=== PATIENT | female | born 2000 | race Caucasian/White ===

== ENCOUNTER 2020-12-03 14:13 | Emergency (ER) | payer OTHER, SELFPAY ==
[2020-12-03 14:38] VITALS: BP 163/105; PULSE 119; RESP 22; TEMP 36.6; O2SAT 97
--- NOTE | 2020-12-03 18:26 | ED_ITS ---
HPI - Anxiety General Chief Complaint: Anxiety Stated Complaint: anxiety/poss si/ticks/depression today Time Seen by Provider: 12/03/20 18:03 Source: patient Mode of arrival: Ambulatory Limitations: no limitations History of Present Illness HPI narrative: Patient is a 20-year-old female who was sent to the emergency department from her counselor's office for evaluation of acute anxiety, tics, thoughts of hurting herself earlier today. She does report that she has had quite a bit of anxiety over the past couple days. She states it was due to ?stressful events ?she is not currently suicidal. She does see a counselor. Her primary doctor manages her medicines. She is currently on Prozac and Seroquel. She has also had ticks for some time now. It started after she was on Prozac in before she started Seroquel although she does think they are getting somewhat worse. She was started on Seroquel after her dose of Prozac was decreased by her primary doctor. She states that this was because she was still having depression issues and also because of the techs. She did take 1 of her personal Ativan tablets in triage and by the time I interviewed her if she was feeling much better. Related Data Home Medications Medication Instructions Recorded Confirmed MULTIVITAMIN (Multivitamin 1 cap PO EVERY DAY #0 07/15/08 -) Allergies Allergy/AdvReac Type Severity Reaction Status Date / Time amoxicillin [AMOXICILLIN] Allergy Intermediate Unverified 01/26/18 11:51 clavulanic acid Allergy Intermediate Unverified 01/26/18 11:51 [CLAVULANIC ACID] Review of Systems Constitutional Constitutional: Denies fever(s) and Denies headache(s) ENT Ears, Nose, Mouth, and Throat: Denies headache(s) Cardiovascular Cardiovascular: Denies chest pain and Denies dyspnea Respiratory Respiratory: Denies dyspnea Gastrointestinal Gastrointestinal: Denies abdominal pain and Denies nausea Neurologic Neurologic: Denies confusion and Denies headache(s) Psychiatric Psychiatric: Reports anxiety, Denies confusion and Reports depression Hematologic/Lymphatic On Anticoagulants: No Allergic/Immunologic Allergic/Immunologic: Denies urticaria Patient History Medical History Acute anxiety Depression Micturition syncope Substance Use Type: marijuana Exam Initial Vital Signs Initial Vital Signs: Vital Signs Temperature 97.8 F 12/03/20 14:38 Pulse Rate 119 H 02/16/21 14:38 Respiratory Rate 22 12/03/20 14:38 Blood Pressure 163/105 H 12/03/20 14:38 Pulse Oximetry 97 12/03/20 14:38 Const General: cooperative, comfortable and well developed Limitations: mental status not altered HENMT Head: normal to inspection and normocephalic Resp Effort & Inspection: normal respiratory effort Cardio Rate: regular rate Skin Lesions: no lesions Neuro General: patient alert and patient awake Cognition: normal cognition Speech: speech normal Extrem General: normal to inspection Psych Appearance: well kempt Speech and Movement: speech and movement normal Mood: congruent mood Affect: normal affect Thought Content: no homicidality and suicidality Course Orders Ordered: ED Orders 12/03/20 15:59 Consult to UNARMED SECURITY OFFICER - [employer] Stat Vital Signs Vital signs: Vital Signs - 8 hr 12/03/20 14:38 12/03/20 18:34 Temperature 97.8 F Pulse Rate 119 H 78 Respiratory Rate 22 14 Blood Pressure 163/105 H 140/78 Pulse Oximetry 97 MDM - Anxiety MDM Narrative Medical decision making narrative: Patient did not currently suicidal nor homicidal. She states that her anxiety is better after her medications. She does have a ?tic ?mostly closing her eyes in moving her head. Considered other issues such as tardive dyskinesia however her presentation today is not consistent with that. I do suspect that it is anxiety related. We did discuss inpatient treatment for her symptoms however she would like to hold on that for now. She is going home with her mother. She was given return precautions. He is going to follow up with both her counselor and her primary doctor regarding her presentation today. She expressed understanding and agreement. Discharge Plan Departure Patient Disposition: Home Clinical Impression: Acute anxiety Instructions: Anxiety Disorders Activity Restrictions/Additional Instructions: Recommend you continue all of your medications as directed. I do recommend that you contact your primary doctor and also your therapist for a follow-up in the next couple days. Return to the emergency department for any new or worsening symptoms Prescriptions: No Action MULTIVITAMIN (Multivitamin -) 1 cap PO EVERY DAY Qty: 0 RF: 0 Referrals: Adolfo Canseco MD [Primary Care Provider] -
[2020-12-03 18:34] VITALS: BP 140/78; PULSE 78; RESP 14
== END 2020-12-03 18:36 | disposition home or self-care (01) ==
PROVIDERS: Emergency Provider Emergency Medicine; Family Provider Family Medicine; PCP Family Medicine
DX: F41.9 Anxiety disorder, unspecified (principal); F32.9 Major depressive disorder, single episode, unspecified
CPT/HCPCS: 99281

== ENCOUNTER → 2021-09-10 12:21 | Outpatient (CLI) | payer OTHER, SELFPAY ==
--- NOTE | 2021-09-10 | DI.US.S_ITS ---
PROCEDURE: US EXTREMITY NONVASC LOWER LT INDICATIONS: LEFT LEG SOFT TISSUE MASS TECHNIQUE: Real-time scanning was performed of the left knee soft tissues, with image documentation. COMPARISON: None. FINDINGS: A complex hypoechoic lesion is seen in the area of clinical concern, measuring 7.8 x 11.4 x 9.7 cm, which does not appear to demonstrate internal vascularity IMPRESSION: 1. Complex hypoechoic lesion in the area of clinical concern. Differential considerations include bursal fluid or hematoma. Consider magnetic resonance imaging for further evaluation if the lesion persists. Dictated by: Duane Hudson M.D. on 09/10/2021 at 14:04 Approved by: Duane Hudson M.D. on 09/10/2021 at 14:07
== END ==
PROVIDERS: Family Provider Family Medicine; PCP Family Medicine; Referring Provider Family Medicine; Visit Provider Family Medicine
DX: R22.42 Localized swelling, mass and lump, left lower limb (principal)
CPT/HCPCS: 76882

== ENCOUNTER → 2021-11-05 14:36 | Outpatient (CLI) | payer OTHER, SELFPAY ==
--- NOTE | 2021-11-05 | DI.CT.S_ITS ---
PROCEDURE: CT LE LT WO CON INDICATIONS: Left Leg Mass TECHNIQUE: Noncontrast 1-1.5 mm axial sections acquired from the mid-patella to the proximal tibia, with coronal and sagittal reformats. COMPARISON: [facility], , EXTREMITY NONVASC LOWER LT, 09/10/2021, 12:39. FINDINGS: Image quality: Excellent. Bones: No acute, displaced fracture or dislocation. Soft tissues: An 11.3 x 6.1 x 9.3 cm soft tissue mass is seen in the popliteal fossa. No substantial joint effusion. IMPRESSION: Soft tissue mass in the popliteal fossa as detailed above. Differential considerations include a neoplastic process or hemorrhagic Johnson's cyst. Magnetic resonance imaging with intravenous contrast may be helpful for further evaluation. Dictated by: Duane Hudson M.D. on 11/05/2021 at 15:05 Approved by: Duane Hudson M.D. on 11/05/2021 at 15:21
== END ==
PROVIDERS: Family Provider Family Medicine; PCP Family Medicine; Referring Provider Family Medicine; Visit Provider Family Medicine
DX: R22.40 Localized swelling, mass and lump, unspecified lower limb (principal)
CPT/HCPCS: 73700

== ENCOUNTER 2022-11-27 09:57 | Emergency (ER) | payer OTHER, SELFPAY ==
[2022-11-27] VITALS (10 sets, daily range): BP systolic 117–160; BP diastolic 62–116; PULSE 104–117; RESP 16–26; TEMP 36.7; O2SAT 98–100; BMI 38.0
--- NOTE | 2022-11-27 10:22 | DI.RAD.S_ITS ---
PROCEDURE: XR KNEE LT 1TO2V INDICATIONS: h/o sarcoma left knee, new pain, increased wound drainage. TECHNIQUE: 2 views of the knee were acquired. COMPARISON: None. FINDINGS: Bones: No displaced fracture. No periosteal reaction. No obvious cortical erosion. Soft tissues: Postsurgical changes with cyst clips and skin clari. [id number] joint effusion. IMPRESSION: Soft tissue postsurgical changes. [id number] joint effusion. No acute radiographic abnormality on this limited two view of the knee. If there is high concern for further derangement, consider MRI evaluation. Dictated by: Ronald Santiago M.D. on 11/27/2022 at 11:00 Approved by: Ronald Santiago M.D. on 11/27/2022 at 11:01
--- NOTE | 2022-11-27 10:22 | DI.RAD.S_ITS ---
PROCEDURE: XR CHEST 1V INDICATIONS: suspected sepsis TECHNIQUE: One view of the chest was acquired. COMPARISON: None. FINDINGS: Surgical changes and devices: Right central line terminates in the SVC. Lungs and pleura: Low lung volumes. No dense consolidation or pleural effusion. Mediastinum: Mediastinal contours appear normal. Heart size is normal. Bones and chest wall: No suspicious bony lesions. Overlying soft tissues appear unremarkable. IMPRESSION: No acute radiographic abnormality. Pulmonary nodules are better seen on prior CT. Dictated by: Ronald Santiago M.D. on 11/27/2022 at 10:59 Approved by: Ronald Santiago M.D. on 11/27/2022 at 10:59
[2022-11-27 11:38] LABS: Add Manual Diff / Slide Review NO; Basophils Absolute Auto 0 /uL (0-100); Basophils Percent Auto 0.3 % (0-2); Eosinophils Absolute Auto 0 /uL (0-450); Eosinophils Percent Auto 0.3 % (2-4); Hematocrit 32.8 % (36-46); Hemoglobin 10.9 g/dL (12.0-16.0); Lymphocytes Absolute Auto 1200 /uL (1100-4500); Mean Corpuscular HGB Conc 33.3 % (30-36); Mean Corpuscular Hemoglobin 32.5 PG (26-34); Mean Corpuscular Volume 97.5 fL (80-100); Monocytes Absolute Auto 1200 /uL (0-900); Monocytes Percent Auto 12.8 % (3-14); Neutrophils Absolute Auto 7200 /uL (1500-7000); Neutrophils Percent Auto 74.6 % (50-75); Platelet Count 299 X10^3/uL (150-400); Red Blood Cell Count 3.37 X10^6/uL (4.0-5.2); Red Cell Distribution Width 16.7 % (11.6-14.8); White Blood Cell Count 9.6 X10^3/uL (4.5-11.0)
[2022-11-27] MEDS: SODIUM CHLORIDE 0.9% 1,000 ML 1000 ML IV ×2 (11:41→14:25)
[2022-11-27 11:50] LABS: INR 1.1 (0.9-1.3); Prothrombin Time 12.1 SECONDS (10.1-12.7)
[2022-11-27 11:53] LABS: PTT Partial Thromboplastin Tim 30 SECONDS (26-36)
[2022-11-27 11:56] LABS: Alanine Aminotransferase 32 IU/L (<35); Albumin 4.2 g/dL (3.5-5.0); Albumin Globulin Ratio 1.3 (1.0-2.8); Alkaline Phosphatase 124 U/L (38-126); Aspartate Aminotransferase 27 IU/L (14-36); BUN Creatinine Ratio 8.8 (6-22); Bilirubin Total 0.3 mg/dL (0.2-1.3); Blood Urea Nitrogen 5 mg/dL (7-17); Calcium 9.1 mg/dL (8.4-10.2); Carbon Dioxide 27 mmol/L (22-32); Chloride 97 mmol/L (98-107); Estimated Glomerular Filt Rate > 60 mL/min (>60); Globulin 3.2 g/dL (1.7-4.1); Glucose 114 mg/dL (70-100); HEMOLYSIS < 15 (0-50); Lipase 24 U/L (23-300); Potassium 3.7 mmol/L (3.4-5.1); Sodium 135 mmol/L (137-145); Total Protein 7.4 g/dL (6.3-8.2)
[2022-11-27 11:57] LABS: Lactate (Lactic Acid) 1.4 mmol/L (0.7-2.1)
--- NOTE | 2022-11-27 13:11 | ED_ITS ---
HPI - Extremity Problem General Chief complaint: Extremity Problem,Nontraumatic Stated complaint: post op LT knee surgey new pain unable to stand Time Seen by Provider: 11/27/22 10:42 Source: patient Mode of arrival: Wheelchair History of Present Illness HPI Narrative: This is a 22-year-old female with known osteosarcoma for left lower extremity who had chemotherapy and then surgery on November 06 for they osteosarcoma developed infection and went back to the OR for additional clean out a week later. Patient states she is been improving but overnight had increased pain over the kneecap and behind the knee or the calf farther below and radiating down towards her ankle. She has not appreciated increasing swelling, warmth redness or other color changes such as pallor or cyanosis. Patient denies fevers or chills. No chest pain, no shortness of breath, no nausea or vomiting, no diarrhea constipation she states stooling normally. No dysuria urgency or frequency. She states she has a wound VAC in place it has been draining small amounts has not changed in color or had any other changes. She states it is not as painful at the site of the wound VAC and this is sort of a different location than where most of her pain was. She states she is had some pain in this area but not as intense in the past. She is normally on lithium, she is been taking oxycodone, tramadol and Vicodin intermittently for pain management. She is on cephalexin for an antibiotic as well and antinausea medicine she does have a Nexplanon in place. She states she is had prior surgery for her tonsils. Allergic to Augmentin. No tobacco, alcohol occasional THC no illicit. Patient's surgeon is Dr. Rodas through [facility] in [place]. Dr. Canseco is her primary care. Related Data Home Medications Medication Instructions Recorded Confirmed MULTIVITAMIN (Multivitamin 1 cap PO EVERY DAY ##0 07/15/08 -) lithium carbonate 300 mg 600 mg PO QAM 11/27/22 11/27/22 tablet,extended release Previous Rx's Medication Instructions Recorded oxycodone 5 mg tablet 5 mg PO Q6H PRN pain #14 tabs 11/27/22 Allergies Allergy/AdvReac Type Severity Reaction Status Date / Time amoxicillin [AMOXICILLIN] Allergy Intermediate Verified 11/27/22 10:15 clavulanic acid Allergy Intermediate Verified 11/27/22 10:15 [CLAVULANIC ACID] Review of Systems Review of Systems ROS Unobtainable: All systems reviewed & are unremarkable except as noted in HPI and below Patient History Medical History Acute anxiety Depression Micturition syncope Social History Smoking Status: Never smoker Smoking Status: Never smoker alcohol intake frequency: 0-2 drinks per day Substance Use Type: marijuana Exam Narrative Exam Narrative: GENERAL: Alert and oriented x three, female in mild distress. HEENT: Head normocephalic, atraumatic, EOMI, pupils reactive, face symmetric, moist mucous membranes NECK: Supple, full range of motion CARDIOVASCULAR: Tachycardic but Regular rate and rhythm without murmurs, rubs or gallops. No edema bilateral lower extremities. RESPIRATORY: Breath sounds equal bilaterally, no wheezes rales or rhonchi. No tachypnea. Speaks in full sentences. ABDOMEN: Soft, nontender. Normoactive bowel sounds all 4 quadrants. No guarding or rebound, rigidity, no mass : No CVA tenderness EXTREMITIES: Decreased range of motion at the knee secondary to pain but is able to lift move the leg., no clubbing or edema. Neurovascularly intact. Scant erythema of the leg but no circumscribed area. Patient does not have any clear tenderness with palpation of the kneecap mildly tender over the calf. Majority of pain is with movement of her leg. Patient has 2+ dorsalis pedis normal sensation to light touch without. No pallor, cyanosis or generalized erythema. Wound VAC appears in place is draining without significant output. There is no erythema extending from the edges of the wound VAC or any purulent type drainage. NEUROLOGICAL: Cranial nerves II through XII grossly intact. Moving all extremities SKIN: Warm, dry, no petechiae. Initial Vital Signs Initial Vital Signs: Vital Signs Temperature 98.1 F 11/27/22 10:10 Pulse Rate 117 H 11/27/22 10:10 Respiratory Rate 22 11/27/22 10:10 Blood Pressure 160/116 H 11/27/22 10:10 Pulse Oximetry 100 11/27/22 10:10 Oxygen Delivery Method 11/27/22 10:10 Course Orders Ordered: ED Orders 11/27/22 10:22 XR chest 1V Stat XR knee LT 1to2V Stat RT Consult Eval and Treat NOW 11/27/22 10:56 EKG-12 Lead Stat 11/27/22 11:20 BNP [NT-proBNP (BNP-Adult 18+)] Stat Complete Blood Count AUTO DIFF Stat Comprehensive Metabolic Panel Stat Lactate (Lactic Acid) Stat Lipase Stat Partial Thromboplastin Time Stat Procalcitonin Stat Prothrombin Time INR Stat Troponin & CK Cardiac Panel Stat 11/27/22 11:58 Blood Culture Stat 11/27/22 13:26 US periph venous low extrem lt Stat 11/27/22 14:47 CT angio chest PE protocol Stat Discontinued Medications Hydromorphone HCl (Hydromorphone 0.5 Mg Inj) 0.5 mg IV NOW ONE Stop: 11/27/22 13:28 Last Admin: 11/27/22 13:33 Dose: 0.5 mg Documented By: COTY Sodium Chloride (Normal Saline 0.9%) 1,000 mls @ 1,000 mls/hr IV BOLUS ONE Stop: 11/27/22 11:21 Last Infusion: 11/27/22 12:50 Dose: 0 mls/hr Documented By: Admin: 11/27/22 11:41 Dose: 1,000 mls/hr Documented By: COTY Sodium Chloride (Normal Saline 0.9%) 1,000 mls @ 1,000 mls/hr IV BOLUS ONE Stop: 11/27/22 14:34 Last Infusion: 11/27/22 16:03 Dose: 0 mls/hr Documented By: Admin: 11/27/22 14:25 Dose: 1,000 mls/hr Documented By: COTY Ondansetron HCl (Ondansetron 4 Mg/2 Ml Inj) 4 mg IV NOW ONE Stop: 11/27/22 13:28 Last Admin: 11/27/22 13:32 Dose: 4 mg Documented By: COTY Oxycodone HCl (Oxycodone Ir 10 Mg Tablet) 10 mg PO Q4HR PRN PRN Reason: Pain, Severe (7-10) Last Admin: 11/27/22 15:03 Dose: 10 mg Documented By: COTY Vital Signs Vital signs: Vital Signs - 8 hr 11/27/22 11:30 11/27/22 12:00 11/27/22 12:30 Pulse Rate 115 H 111 H 104 H Respiratory Rate 18 18 16 Blood Pressure 128/71 126/67 124/68 Pulse Oximetry 100 100 100 Oxygen Delivery Method Room Air Room Air 11/27/22 13:17 11/27/22 13:30 11/27/22 14:30 Pulse Rate 109 H 111 H Respiratory Rate 16 18 Blood Pressure 117/62 118/71 129/75 Pulse Oximetry 98 99 Oxygen Delivery Method Room Air 11/27/22 14:00 11/27/22 15:00 11/27/22 16:14 Pulse Rate 114 H 106 H 106 H Respiratory Rate 18 18 26 H Blood Pressure 123/76 129/70 131/69 Pulse Oximetry 99 100 98 Oxygen Delivery Method Room Air Room Air Room Air MDM - Extremity (Nontraumatic) Lab Data 11/27/22 11:20 11/27/22 11:20 Labs: Lab Results 11/27/22 11/27/22 11/27/22 Range/Units 11:20 11:20 11:20 WBC 9.6 (4.5-11.0) X10^3/uL RBC 3.37 L (4.0-5.2) X10^6/uL Hgb 10.9 L (12.0-16.0) g/dL Hct 32.8 L (36-46) % MCV 97.5 (80-100) fL MCH 32.5 (26-34) PG MCHC 33.3 (30-36) % RDW 16.7 H (11.6-14.8) % Plt Count 299 (150-400) X10^3/uL Neut % (Auto) 74.6 (50-75) % Lymph % (Auto) 12.0 L (25-40) % Routt % (Auto) 12.8 (3-14) % Eos % (Auto) 0.3 L (2-4) % Baso % (Auto) 0.3 (0-2) % Neut # (Auto) 7200 H (3826-2452) /uL Lymph # (Auto) 1200 (2434-1010) /uL Routt # (Auto) 1200 H (0-900) /uL Eos # (Auto) 0 (0-450) /uL Baso # (Auto) 0 (0-100) /uL PT 12.1 (10.1-12.7) SECONDS INR 1.1 (0.9-1.3) APTT 30 (26-36) SECONDS Sodium 135 L (137-145) mmol/L Potassium 3.7 (3.4-5.1) mmol/L Chloride 97 L (98-107) mmol/L Carbon Dioxide 27 (22-32) mmol/L BUN 5 L (7-17) mg/dL Creatinine 0.57 (0.52-1.04) mg/dL Estimated GFR > 60 (>60) mL/min BUN/Creatinine Ratio 8.8 (6-22) Glucose 114 H (70-100) mg/dL Lactate (0.7-2.1) mmol/L Calcium 9.1 (8.4-10.2) mg/dL Total Bilirubin 0.3 (0.2-1.3) mg/dL AST 27 (14-36) IU/L ALT 32 (<35) IU/L Alkaline Phosphatase 124 (38-126) U/L Total Creatine Kinase (30-135) U/L CK-MB (CK-2) CK-MB (CK-2) Rel Index Troponin I (0.01-0.034) ng/mL NT-Pro-B Natriuret Pep (<125) pg/mL Total Protein 7.4 (6.3-8.2) g/dL Albumin 4.2 (3.5-5.0) g/dL Globulin 3.2 (1.7-4.1) g/dL Albumin/Globulin Ratio 1.3 (1.0-2.8) Lipase 24 (23-300) U/L Procalcitonin 0.10 (<0.5) ng/mL 11/27/22 11/27/22 Range/Units 11:20 11:20 WBC (4.5-11.0) X10^3/uL RBC (4.0-5.2) X10^6/uL Hgb (12.0-16.0) g/dL Hct (36-46) % MCV (80-100) fL MCH (26-34) PG MCHC (30-36) % RDW (11.6-14.8) % Plt Count (150-400) X10^3/uL Neut % (Auto) (50-75) % Lymph % (Auto) (25-40) % [place] % (Auto) (3-14) % Eos % (Auto) (2-4) % Baso % (Auto) (0-2) % Neut # (Auto) (3847-1573) /uL Lymph # (Auto) (4349-0571) /uL Routt # (Auto) (0-900) /uL Eos # (Auto) (0-450) /uL Baso # (Auto) (0-100) /uL PT (10.1-12.7) SECONDS INR (0.9-1.3) APTT (26-36) SECONDS Sodium (137-145) mmol/L Potassium (3.4-5.1) mmol/L Chloride (98-107) mmol/L Carbon Dioxide (22-32) mmol/L BUN (7-17) mg/dL Creatinine (0.52-1.04) mg/dL Estimated GFR (>60) mL/min BUN/Creatinine Ratio (6-22) Glucose (70-100) mg/dL Lactate 1.4 (0.7-2.1) mmol/L Calcium (8.4-10.2) mg/dL Total Bilirubin (0.2-1.3) mg/dL AST (14-36) IU/L ALT (<35) IU/L Alkaline Phosphatase (38-126) U/L Total Creatine Kinase 40 (30-135) U/L CK-MB (CK-2) TNP CK-MB (CK-2) Rel Index TNP Troponin I < 0.012 (0.01-0.034) ng/mL NT-Pro-B Natriuret Pep 98 (<125) pg/mL Total Protein (6.3-8.2) g/dL Albumin (3.5-5.0) g/dL Globulin (1.7-4.1) g/dL Albumin/Globulin Ratio (1.0-2.8) Lipase (23-300) U/L Procalcitonin (<0.5) ng/mL Point of Care Testing Test Results Negative Urine Dip Bedside Urine Glucose Negative Bedside Urine Bilirubin - Negative Bedside Urine Ketone - Negative Urine Specific [place] 1.015 Bedside Urine Occult Blood - Negative Bedside Urine pH 7.0 Bedside Urine Protein - Negative Bedside Urine Urobilinogen - Negative Bedside Urine Nitrite - Negative Bedside Urine Leukocytes - Negative Esterase Imaging Data CT scan - chest: Radiologist's Impression: Close Chest CTA (Signed) JackRonald - 11/27/22 Vascular Ultrasound (Signed) Jack,Ronald - 11/27/22 Chest X-Ray (Signed) Jack,Ronald - 11/27/22 Knee X-Ray (Signed) Jack,Ronald - 11/27/22 Knee X-Ray (Cancelled) 11/27/22 Launch?[address] [address] [address] Scan Report Signed Patient: Mira Viramontes MR#: [id number] : 2000 Acct:[id number] Age/Sex: 22 / F Date of Service: 11/27/22 Loc: ED Accession Number: [id number] ?? Procedure: CT angio chest PE protocol Ordering Provider: Carla Nino D.O. PROCEDURE:? CT ANGIO CHEST PE PROTOCOL ? INDICATIONS:? tachycardia, recent surgery, leg pain ? TECHNIQUE:? After the administration of intravenous contrast, 2 mm thick sections acquired from the pulmonary apices to the posterior costophrenic angles.? 3-dimensional maximum intensity projection (MIP) coronal and sagittal reformats were then acquired through the thorax.? For radiation dose reduction, the following was used:? automated exposure control, adjustment of mA and/or kV according to patient size.? ? COMPARISON:? [facility], CT, CT CHEST ABDOMEN PELVIS WITH CONTRAST, 10/01/2022, 14:51. ? FINDINGS:? Image quality:? Motion degraded.? Contrast opacification of the pulmonary arteries is also slightly suboptimal. ? Lungs and pleura:? No pleural effusions.? Bibasilar atelectasis versus mosaic attenuation from expiratory respiratory phase. 4 mm right costophrenic angle nodule.? Lung series image 188. Attention on follow-up given history of malignancy. ? Mediastinum, heart, and esophagus:? Distal pulmonary arteries are not well evalu ated.? There is no central/occlusive thrombus. No aortic dissection.? A right venous catheter terminates in the proximal right atrium.? No hiatal hernia.? No pathologic adenopathy by size criteria. ? Chest wall and thyroid:? Thyroid is unremarkable.? Chest wall is unremarkable. ? Upper abdomen:? Possible hepatic steatosis.? No gross abnormality on this arterial phase CT in the upper abdomen.? ? Bones:? No acute or suspicious osseous finding. ? IMPRESSION:? No central pulmonary embolism.? Imaging limitations as above. ? Mosaic attenuation versus infectious or inflammatory ground-glass opacities in the lower lungs, not well evaluated. ? Other findings as above.? ? Dictated by: Ronald Santiago M.D. on 11/27/2022 at 15:45 ? ? Approved by: Ronald Santiago M.D. on 11/27/2022 at 15:54?? US - DVT: Radiologist's Impression: Close Chest CTA (Signed) Jack,Ronald - 11/27/22 Vascular Ultrasound (Signed) Jack,Ronald - 11/27/22 Knee X-Ray (Signed) Jack,Ronald - 11/27/22 Knee X-Ray (Cancelled) 11/27/22 Chest X-Ray (Signed) Jack,Ronald - 11/27/[address] (Signed) Duane Hudson - 11/05/21 Lower Extremity Ultrasound (Signed) Duane Hudson - 09/10/21 Launch?[place] [address] Ultrasound Report Signed Patient: Mira Viramontes MR#: [id number] : 2000 Acct:[id number] Age/Sex: 22 / F Date of Service: 11/27/22 Loc: ED Accession Number: [id number] ?? Procedure: US periph venous low extrem lt Ordering Provider: Carla Nino D.O. PROCEDURE:? US PERIPH VENOUS LOW EXTREM LT ? INDICATIONS:? PAIN, EDEMA 8 DAYS POST OP; LEFT POPLITEAL OSTEOSARCOMA ? TECHNIQUE:? Real-time imaging, as well as color and pulse Doppler interrogation, were perfor med of the lower extremity deep veins from the inguinal ligament to the popliteal fossa.? ? COMPARISON:? None. ? FINDINGS:? The common femoral, femoral and popliteal veins are normally compressible, and free of intraluminal thrombus.? Color and pulse Doppler demonstrate normal phasic intraluminal flow.? There is normal augmentation response to distal compression maneuver. ? ? IMPRESSION:? Negative study for DVT, however popliteal vein was not visualized. ? ? Dictated by: Ronald Santiago M.D. on 11/27/2022 at 14:21 ? ? Approved by: Ronald Santiago M.D. on 11/27/2022 at 14:21?? Extremity x-ray #1: Radiologist's Impression: Close Chest CTA (Signed) Jack,Ronald - 11/27/22 Vascular Ultrasound (Signed) Jack,Ronald - 11/27/22 Knee X-Ray (Signed) Jack,Ronald - 11/27/22 Knee X-Ray (Cancelled) 11/27/22 Chest X-Ray (Signed) Jack,Ronald - 11/27/[address] (Signed) [facility] Hudson - 11/05/21 Lower Extremity Ultrasound (Signed) Duane Hudson - 09/10/21 Launch?[facility] [address] [address] XRay Report Signed Patient: Mira Viramontes MR#: [id number] : 2000 Acct:[id number] Age/Sex: 22 / F Date of Service: 11/27/22 Loc: ED Accession Number: [id number] ?? Procedure: XR knee LT 1to2V Ordering Provider: Carla Nino D.O. PROCEDURE:? XR KNEE LT 1TO2V ? INDICATIONS:? h/o sarcoma left knee, new pain, increased wound drainage. ? TECHNIQUE:? 2 views of the knee were acquired.? ? COMPARISON:? None. ? FINDINGS:? ? Bones:? No displaced fracture.? No periosteal reaction.? No obvious cortical erosion. ? Soft tissues:? Postsurgical changes with cyst clips and skin clari.? Cgji-xw-lnrguvbl joint effusion. ? ? IMPRESSION:? Soft tissue postsurgical changes.? Rfap-cb-[id number] joint effusion.? No acute radiographic abnormality on this limited two view of the knee.? If there is high concern for further derangement, consider MRI evaluation. ? ? Dictated by: Ronald Santiago M.D. on 11/27/2022 at 11:00 ? ? Approved by: Ronald Santiago M.D. on 11/27/2022 at 11:01?? Chest x-ray: Radiologist's Impression: [address] [address] XRay Report Signed Patient: Mira Viramontes MR#: [id number] : 2000 Acct:[id number] Age/Sex: 22 / F Date of Service: 11/27/22 Loc: ED Accession Number: [id number] ?? Procedure: XR chest 1V Ordering Provider: Carla Nino D.O. PROCEDURE:? XR CHEST 1V ? INDICATIONS:? suspected sepsis ? TECHNIQUE:? One view of the chest was acquired.? ? COMPARISON:? None. ? FINDINGS:? ? Surgical changes and devices:? Right central line terminates in the SVC. ? Lungs and pleura:? Low lung volumes.? No dense consolidation or pleural effusion. ? Mediastinum:? Mediastinal contours appear normal.? Heart size is normal.? ? Bones and chest wall:? No suspicious bony lesions.? Overlying soft tissues appear unremarkable.? ? IMPRESSION:? No acute radiographic abnormality.? Pulmonary nodules are better seen on prior CT. ? ? Dictated by: Ronald Santiago M.D. on 11/27/2022 at 10:59 ? ? Approved by: Ronald Santiago M.D. on 11/27/2022 at 10:59?? ECG Data Attestation EKG: I personally reviewed and interpreted this ECG as follows: Interpretation: Sinus tachycardia rate of 113 [place] 158 QRS of 94 and QTC of 447. No acute ST elevation Q3 T3-S1 MDM Narrative Medical decision making narrative: This is a 22-year-old female who presents with increased pain of her left kneec ap and catheterization. Patient is postop for an osteosarcoma she has a wound VAC her surgery was in October. She has not appreciated new swelling, fevers patient notes she is had chronic she is taking daily medications but pain sort of suddenly increased over the last 12 hours. The wound itself appears clean dry and intact there is a wound VAC in place with mild drainage that has not been increasing. Patient is not particularly tender to palpation she does have increased pain with movement. X-ray imaging was negative, lab work do not show any obvious sign of infection, she is anemic but did have recent surgery and chemotherapy prior to that. Kidney function electrolytes are otherwise normal she has been persistently tachycardic. Ultrasound does not show DVT but they can not see directly over the wound VAC on her posterior thigh just adjacent to the knee, after discussion with patient they will not be able to have the wound VAC changed out 0 appointment is while they are currently in the department for going into the weekend the surrounding area does not show clot. Patient did have PE scan which is negative for clot she was mildly tachycardic what felt appropriate as we could fully visualize the vessels discussed with patient she is going to restart her aspirin she was on initially after surgery but has not continued. She had pain medication which was helpful and she is caught been as ambulatory but has been walking prior to today. Will bump up her pain medication for the short term, she is follow up on Wednesday with wound care on asked her to reach out to her surgeon to be seen for recheck with return precautions. Discharge Plan Departure Patient Disposition: Home Clinical Impression: Leg pain Activity Restrictions/Additional Instructions: Continue your wound care appointments. Please follow-up with your surgeon for recheck. Your ultrasound today does not show DVT but we can not fully view the popliteal area. There is a potential for DVT but no evidence in the other portions, your CT of your chest today did not show any pulmonary emboli. Your wound does not appear more infected today. I would recommend you continue your home pain medications. You can take a 1000 mg of Tylenol every 6 hours with either tramadol or oxycodone. Your maximum dos e of Tylenol or acetaminophen in 24 hours is 4000 mg. Prescription to [facility] in [place]. Please return for worsening pain, new chest pain, shortness of breath, fevers, nausea or vomiting, increasing swelling in her extremities or other new or concerning changes. Prescriptions: New oxycodone 5 mg tablet 5 mg PO Q6H PRN (Reason: pain) Qty: 14 0RF No Action MULTIVITAMIN (Multivitamin -) 1 cap PO EVERY DAY Qty: 0 lithium carbonate 300 mg tablet extended release 600 mg PO QAM Referrals: Adolfo Canseco MD [Primary Care Provider] - Stand Alone Forms: Patient Portal/API
--- NOTE | 2022-11-27 13:26 | DI.US.S_ITS ---
PROCEDURE: US PERIPH VENOUS LOW EXTREM LT INDICATIONS: PAIN, EDEMA 8 DAYS POST OP; LEFT POPLITEAL OSTEOSARCOMA TECHNIQUE: Real-time imaging, as well as color and pulse Doppler interrogation, were performed of the lower extremity deep veins from the inguinal ligament to the popliteal fossa. COMPARISON: None. FINDINGS: The common femoral, femoral and popliteal veins are normally compressible, and free of intraluminal thrombus. Color and pulse Doppler demonstrate normal phasic intraluminal flow. There is normal augmentation response to distal compression maneuver. IMPRESSION: Negative study for DVT, however popliteal vein was not visualized. Dictated by: Ronald Santiago M.D. on 11/27/2022 at 14:21 Approved by: Ronald Santiago M.D. on 11/27/2022 at 14:21
[2022-11-27] MEDS: ONDANSETRON 4 MG/2 ML INJ IV (13:32)
[2022-11-27] MEDS: HYDROMORPHONE 0.5 MG INJ IV (13:33)
[2022-11-27 13:42] LABS: Creatine Kinase 40 U/L (30-135)
[2022-11-27 13:55] LABS: NT-proBNP (BNP-Adult 18+) 98 pg/mL (<125); Troponin I < 0.012 ng/mL (0.01-0.034)
--- NOTE | 2022-11-27 14:47 | DI.CT.S_ITS ---
PROCEDURE: CT ANGIO CHEST PE PROTOCOL INDICATIONS: tachycardia, recent surgery, leg pain TECHNIQUE: After the administration of intravenous contrast, 2 mm thick sections acquired from the pulmonary apices to the posterior costophrenic angles. 3-dimensional maximum intensity projection (MIP) coronal and sagittal reformats were then acquired through the thorax. For radiation dose reduction, the following was used: automated exposure control, adjustment of mA and/or kV according to patient size. COMPARISON: [facility], CT, CT CHEST ABDOMEN PELVIS WITH CONTRAST, 10/01/2022, 14:51. FINDINGS: Image quality: Motion degraded. Contrast opacification of the pulmonary arteries is also slightly suboptimal. Lungs and pleura: No pleural effusions. Bibasilar atelectasis versus mosaic attenuation from expiratory respiratory phase. 4 mm right costophrenic angle nodule. Lung series image 188. Attention on follow-up given history of malignancy. Mediastinum, heart, and esophagus: Distal pulmonary arteries are not well evaluated. There is no central/occlusive thrombus. No aortic dissection. A right venous catheter terminates in the proximal right atrium. No hiatal hernia. No pathologic adenopathy by size criteria. Chest wall and thyroid: Thyroid is unremarkable. Chest wall is unremarkable. Upper abdomen: Possible hepatic steatosis. No gross abnormality on this arterial phase CT in the upper abdomen. Bones: No acute or suspicious osseous finding. IMPRESSION: No central pulmonary embolism. Imaging limitations as above. Mosaic attenuation versus infectious or inflammatory ground-glass opacities in the lower lungs, not well evaluated. Other findings as above. Dictated by: Ronald Santiago M.D. on 11/27/2022 at 15:45 Approved by: Ronald Santiago M.D. on 11/27/2022 at 15:54
[2022-11-27] MEDS: OXYCODONE IR 10 MG TABLET PO (15:03)
== END 2022-11-27 16:25 | disposition home or self-care (01) ==
PROVIDERS: Emergency Provider Emergency Medicine; Family Provider Family Medicine; PCP Family Medicine
DX: M79.605 Pain in left leg (principal); R00.0 Tachycardia, unspecified; R60.0 Localized edema; Z85.831 Personal history of malignant neoplasm of soft tissue
CPT/HCPCS: 36415; 71045; 71275; 73560; 80053; 81003; 81025; 82550; 83605; 83690; 83880; 84145; 84484; 85025; 85610; 85730; 87040; 93005; 93971; 96361; 96374; 96375; 99284; 99285; J1170; J2405; Q9967

== ENCOUNTER → 2022-12-01 10:24 | Outpatient (CLI) | payer OTHER, SELFPAY | PROVIDERS: Family Provider Family Medicine; PCP Family Medicine; Referring Provider Family Medicine; Visit Provider Surgery | DX: T81.89XA Other complications of procedures, not elsewhere classified, initial encounter (principal); S81.002A Unspecified open wound, left knee, initial encounter; L53.9 Erythematous condition, unspecified; R60.0 Localized edema | CPT/HCPCS: 11042; 99204; 99213 ==

== ENCOUNTER → 2022-12-08 14:11 | Outpatient (CLI) | payer OTHER, SELFPAY | PROVIDERS: Family Provider Family Medicine; PCP Family Medicine; Referring Provider Family Medicine; Visit Provider Surgery | DX: S81.002A Unspecified open wound, left knee, initial encounter (principal); T81.89XA Other complications of procedures, not elsewhere classified, initial encounter; L59.8 Other specified disorders of the skin and subcutaneous tissue related to radiation; R60.0 Localized edema | CPT/HCPCS: 11042; 11045; 97605 ==

== ENCOUNTER → 2022-12-11 13:59 | Outpatient (CLI) | payer OTHER, SELFPAY | PROVIDERS: Family Provider Family Medicine; PCP Family Medicine; Referring Provider Family Medicine; Visit Provider Nurse Practitioner Family | DX: S81.002A Unspecified open wound, left knee, initial encounter (principal); R60.0 Localized edema | CPT/HCPCS: 97605 ==

== ENCOUNTER → 2022-12-15 13:47 | Outpatient (CLI) | payer OTHER, SELFPAY | PROVIDERS: Family Provider Family Medicine; PCP Family Medicine; Referring Provider Family Medicine; Visit Provider Surgery | DX: L59.8 Other specified disorders of the skin and subcutaneous tissue related to radiation (principal); S81.002A Unspecified open wound, left knee, initial encounter; M25.562 Pain in left knee; R60.0 Localized edema; Z85.831 Personal history of malignant neoplasm of soft tissue | CPT/HCPCS: 11042; 11045; 97605 ==

== ENCOUNTER → 2022-12-18 14:14 | Outpatient (CLI) | payer OTHER, SELFPAY | PROVIDERS: Family Provider Family Medicine; PCP Family Medicine; Referring Provider Family Medicine; Visit Provider Surgery | DX: S81.002A Unspecified open wound, left knee, initial encounter (principal); T81.89XA Other complications of procedures, not elsewhere classified, initial encounter; R60.0 Localized edema | CPT/HCPCS: 97605 ==

== ENCOUNTER → 2022-12-22 14:20 | Outpatient (CLI) | payer OTHER, SELFPAY | PROVIDERS: Family Provider Family Medicine; PCP Family Medicine; Referring Provider Family Medicine; Visit Provider Surgery | DX: L59.9 Disorder of the skin and subcutaneous tissue related to radiation, unspecified (principal); T81.31XD Disruption of external operation (surgical) wound, not elsewhere classified, subsequent encounter | CPT/HCPCS: 11042; 11045; 99212 ==

== ENCOUNTER → 2022-12-25 13:58 | Outpatient (CLI) | payer OTHER, SELFPAY | PROVIDERS: Family Provider Family Medicine; PCP Family Medicine; Referring Provider Family Medicine; Visit Provider Nurse Practitioner Family | DX: S81.002A Unspecified open wound, left knee, initial encounter (principal); T81.89XA Other complications of procedures, not elsewhere classified, initial encounter; R60.0 Localized edema | CPT/HCPCS: 97605 ==

== ENCOUNTER → 2022-12-29 14:52 | Outpatient (CLI) | payer OTHER, SELFPAY | PROVIDERS: Family Provider Family Medicine; PCP Family Medicine; Referring Provider Family Medicine; Visit Provider Surgery | DX: S81.002A Unspecified open wound, left knee, initial encounter (principal); T81.89XA Other complications of procedures, not elsewhere classified, initial encounter; L59.8 Other specified disorders of the skin and subcutaneous tissue related to radiation; R60.0 Localized edema | CPT/HCPCS: 11042; 11045; 97605; 99213 ==

== ENCOUNTER → 2023-01-01 13:59 | Outpatient (CLI) | payer OTHER, SELFPAY | PROVIDERS: Family Provider Family Medicine; PCP Family Medicine; Referring Provider Family Medicine; Visit Provider Nurse Practitioner Family | DX: S81.002A Unspecified open wound, left knee, initial encounter (principal); T81.89XA Other complications of procedures, not elsewhere classified, initial encounter; R60.0 Localized edema | CPT/HCPCS: 97605; 99212 ==

== ENCOUNTER → 2023-01-05 13:48 | Outpatient (CLI) | payer OTHER, SELFPAY | PROVIDERS: Family Provider Family Medicine; PCP Family Medicine; Referring Provider Family Medicine; Visit Provider Surgery | DX: L59.8 Other specified disorders of the skin and subcutaneous tissue related to radiation (principal); S81.002A Unspecified open wound, left knee, initial encounter; C49.22 Malignant neoplasm of connective and soft tissue of left lower limb, including hip; R60.0 Localized edema | CPT/HCPCS: 11042; 97605 ==

== ENCOUNTER → 2023-01-08 13:43 | Outpatient (CLI) | payer OTHER, SELFPAY | PROVIDERS: Family Provider Family Medicine; PCP Family Medicine; Referring Provider Family Medicine; Visit Provider Nurse Practitioner Family | DX: S81.002A Unspecified open wound, left knee, initial encounter (principal); T81.89XA Other complications of procedures, not elsewhere classified, initial encounter | CPT/HCPCS: 97605 ==

== ENCOUNTER → 2023-01-12 14:26 | Outpatient (CLI) | payer OTHER, SELFPAY | PROVIDERS: Family Provider Family Medicine; PCP Family Medicine; Referring Provider Family Medicine; Visit Provider Surgery | DX: L59.8 Other specified disorders of the skin and subcutaneous tissue related to radiation (principal); S81.002A Unspecified open wound, left knee, initial encounter; R60.0 Localized edema | CPT/HCPCS: 11042; 97605 ==

== ENCOUNTER → 2023-01-15 14:21 | Outpatient (CLI) | payer OTHER, SELFPAY | PROVIDERS: Family Provider Family Medicine; PCP Family Medicine; Referring Provider Family Medicine; Visit Provider Nurse Practitioner Family | DX: T81.89XA Other complications of procedures, not elsewhere classified, initial encounter (principal) | CPT/HCPCS: 97605 ==

== ENCOUNTER → 2023-01-19 08:21 | Outpatient (CLI) | payer OTHER, SELFPAY | PROVIDERS: Family Provider Family Medicine; PCP Family Medicine; Referring Provider Family Medicine; Visit Provider Surgery | DX: L59.8 Other specified disorders of the skin and subcutaneous tissue related to radiation (principal); S81.002A Unspecified open wound, left knee, initial encounter; R60.0 Localized edema | CPT/HCPCS: 97605; 99183; 99212; G0277 ==

== ENCOUNTER → 2023-01-20 11:01 | Outpatient (CLI) | payer OTHER, SELFPAY | PROVIDERS: Family Provider Family Medicine; PCP Family Medicine; Referring Provider Family Medicine; Visit Provider Nurse Practitioner Family | DX: T81.31XD Disruption of external operation (surgical) wound, not elsewhere classified, subsequent encounter (principal); L59.8 Other specified disorders of the skin and subcutaneous tissue related to radiation | CPT/HCPCS: 99183; G0277 ==

== ENCOUNTER → 2023-01-21 08:26 | Outpatient (CLI) | payer OTHER, SELFPAY | PROVIDERS: Family Provider Family Medicine; PCP Family Medicine; Referring Provider Family Medicine; Visit Provider Nurse Practitioner Family | DX: S81.002A Unspecified open wound, left knee, initial encounter (principal); R60.0 Localized edema; L59.8 Other specified disorders of the skin and subcutaneous tissue related to radiation | CPT/HCPCS: 97605; 99183; G0277 ==

== ENCOUNTER → 2023-01-22 09:08 | Outpatient (CLI) | payer OTHER, SELFPAY | PROVIDERS: Family Provider Family Medicine; PCP Family Medicine; Referring Provider Family Medicine; Visit Provider Nurse Practitioner Family | DX: L59.8 Other specified disorders of the skin and subcutaneous tissue related to radiation (principal) | CPT/HCPCS: 99183; G0277 ==

== ENCOUNTER → 2023-01-25 09:30 | Outpatient (CLI) | payer OTHER, SELFPAY | PROVIDERS: Family Provider Family Medicine; PCP Family Medicine; Referring Provider Family Medicine; Visit Provider Surgery | DX: T81.31XD Disruption of external operation (surgical) wound, not elsewhere classified, subsequent encounter (principal); L59.8 Other specified disorders of the skin and subcutaneous tissue related to radiation | CPT/HCPCS: 99183; G0277 ==

== ENCOUNTER → 2023-01-26 08:34 | Outpatient (CLI) | payer OTHER, SELFPAY | PROVIDERS: Family Provider Family Medicine; PCP Family Medicine; Referring Provider Family Medicine; Visit Provider Surgery | DX: T81.89XA Other complications of procedures, not elsewhere classified, initial encounter (principal); S81.002A Unspecified open wound, left knee, initial encounter; L59.8 Other specified disorders of the skin and subcutaneous tissue related to radiation; R60.0 Localized edema | CPT/HCPCS: 11042; 97605; 99183; 99212; 99213; G0277 ==

== ENCOUNTER → 2023-01-27 08:37 | Outpatient (CLI) | payer OTHER, SELFPAY | PROVIDERS: Family Provider Family Medicine; PCP Family Medicine; Referring Provider Family Medicine; Visit Provider Surgery | DX: T81.31XD Disruption of external operation (surgical) wound, not elsewhere classified, subsequent encounter (principal); L59.8 Other specified disorders of the skin and subcutaneous tissue related to radiation | CPT/HCPCS: 99183; G0277 ==

== ENCOUNTER → 2023-01-28 08:44 | Outpatient (CLI) | payer OTHER, SELFPAY | PROVIDERS: Family Provider Family Medicine; PCP Family Medicine; Referring Provider Family Medicine; Visit Provider Surgery | DX: T81.31XD Disruption of external operation (surgical) wound, not elsewhere classified, subsequent encounter (principal); L59.8 Other specified disorders of the skin and subcutaneous tissue related to radiation | CPT/HCPCS: 99183; G0277 ==

== ENCOUNTER → 2023-01-29 09:14 | Outpatient (CLI) | payer OTHER, SELFPAY | PROVIDERS: Family Provider Family Medicine; PCP Family Medicine; Referring Provider Family Medicine; Visit Provider Nurse Practitioner Family | DX: T81.31XD Disruption of external operation (surgical) wound, not elsewhere classified, subsequent encounter (principal); L59.8 Other specified disorders of the skin and subcutaneous tissue related to radiation | CPT/HCPCS: 97605; 99183; G0277 ==

== ENCOUNTER → 2023-02-01 09:00 | Outpatient (CLI) | payer OTHER, SELFPAY | PROVIDERS: Family Provider Family Medicine; PCP Family Medicine; Referring Provider Family Medicine; Visit Provider Surgery | DX: T81.31XD Disruption of external operation (surgical) wound, not elsewhere classified, subsequent encounter (principal); L59.8 Other specified disorders of the skin and subcutaneous tissue related to radiation | CPT/HCPCS: 99183; G0277 ==

== ENCOUNTER → 2023-02-02 08:37 | Outpatient (CLI) | payer OTHER, SELFPAY | PROVIDERS: Family Provider Family Medicine; PCP Family Medicine; Referring Provider Family Medicine; Visit Provider Surgery | DX: T81.31XD Disruption of external operation (surgical) wound, not elsewhere classified, subsequent encounter (principal); L59.8 Other specified disorders of the skin and subcutaneous tissue related to radiation; S81.002A Unspecified open wound, left knee, initial encounter; R60.0 Localized edema | CPT/HCPCS: 97605; 99183; G0277 ==

== ENCOUNTER → 2023-02-04 08:37 | Outpatient (CLI) | payer OTHER, SELFPAY | PROVIDERS: Family Provider Family Medicine; PCP Family Medicine; Referring Provider Family Medicine; Visit Provider Surgery | DX: T81.31XD Disruption of external operation (surgical) wound, not elsewhere classified, subsequent encounter (principal); L59.8 Other specified disorders of the skin and subcutaneous tissue related to radiation | CPT/HCPCS: 99183; G0277 ==

== ENCOUNTER → 2023-02-05 11:25 | Outpatient (CLI) | payer OTHER, SELFPAY | PROVIDERS: Family Provider Family Medicine; PCP Family Medicine; Referring Provider Family Medicine; Visit Provider Nurse Practitioner Family | DX: S81.802A Unspecified open wound, left lower leg, initial encounter (principal); R60.0 Localized edema | CPT/HCPCS: 97605 ==

== ENCOUNTER → 2023-02-08 15:14 | Outpatient (CLI) | payer OTHER, SELFPAY | PROVIDERS: Family Provider Family Medicine; PCP Family Medicine; Referring Provider Family Medicine; Visit Provider Surgery | DX: L59.8 Other specified disorders of the skin and subcutaneous tissue related to radiation (principal); T81.31XD Disruption of external operation (surgical) wound, not elsewhere classified, subsequent encounter | CPT/HCPCS: 99183; G0277 ==

== ENCOUNTER → 2023-02-09 08:29 | Outpatient (CLI) | payer OTHER, SELFPAY | PROVIDERS: Family Provider Family Medicine; PCP Family Medicine; Referring Provider Family Medicine; Visit Provider Surgery | DX: T81.31XD Disruption of external operation (surgical) wound, not elsewhere classified, subsequent encounter (principal); L59.8 Other specified disorders of the skin and subcutaneous tissue related to radiation; T81.89XA Other complications of procedures, not elsewhere classified, initial encounter; S81.002A Unspecified open wound, left knee, initial encounter; R60.0 Localized edema | CPT/HCPCS: 11042; 97605; 99183; G0277 ==

== ENCOUNTER → 2023-02-10 09:29 | Outpatient (CLI) | payer OTHER, SELFPAY | PROVIDERS: Family Provider Family Medicine; PCP Family Medicine; Referring Provider Family Medicine; Visit Provider Nurse Practitioner Family | DX: L59.8 Other specified disorders of the skin and subcutaneous tissue related to radiation (principal) | CPT/HCPCS: 99183; G0277 ==

== ENCOUNTER → 2023-02-12 11:14 | Outpatient (CLI) | payer OTHER, SELFPAY | PROVIDERS: Family Provider Family Medicine; PCP Family Medicine; Referring Provider Family Medicine; Visit Provider Nurse Practitioner Family | DX: S81.002A Unspecified open wound, left knee, initial encounter (principal); R60.0 Localized edema; M25.562 Pain in left knee; L59.8 Other specified disorders of the skin and subcutaneous tissue related to radiation; T81.31XD Disruption of external operation (surgical) wound, not elsewhere classified, subsequent encounter | CPT/HCPCS: 97605; 99183; G0277 ==

== ENCOUNTER → 2023-02-15 09:23 | Outpatient (CLI) | payer OTHER, SELFPAY | PROVIDERS: Family Provider Family Medicine; PCP Family Medicine; Referring Provider Family Medicine; Visit Provider Surgery | DX: T81.31XD Disruption of external operation (surgical) wound, not elsewhere classified, subsequent encounter (principal); L59.8 Other specified disorders of the skin and subcutaneous tissue related to radiation | CPT/HCPCS: 99183; G0277 ==

== ENCOUNTER → 2023-02-16 08:35 | Outpatient (CLI) | payer OTHER, SELFPAY | PROVIDERS: Family Provider Family Medicine; PCP Family Medicine; Referring Provider Family Medicine; Visit Provider Surgery | DX: S81.002A Unspecified open wound, left knee, initial encounter (principal); T81.31XA Disruption of external operation (surgical) wound, not elsewhere classified, initial encounter; M25.562 Pain in left knee; T81.31XD Disruption of external operation (surgical) wound, not elsewhere classified, subsequent encounter; L59.8 Other specified disorders of the skin and subcutaneous tissue related to radiation | CPT/HCPCS: 11042; 97605; 99183; G0277 ==

== ENCOUNTER → 2023-02-17 09:07 | Outpatient (CLI) | payer OTHER, SELFPAY | PROVIDERS: Family Provider Family Medicine; PCP Family Medicine; Referring Provider Family Medicine; Visit Provider Surgery | DX: T81.31XD Disruption of external operation (surgical) wound, not elsewhere classified, subsequent encounter (principal); L59.8 Other specified disorders of the skin and subcutaneous tissue related to radiation | CPT/HCPCS: 99183; G0277 ==

== ENCOUNTER → 2023-03-01 11:19 | Outpatient (CLI) | payer OTHER, SELFPAY | PROVIDERS: Family Provider Family Medicine; PCP Family Medicine; Referring Provider Family Medicine; Visit Provider Surgery | DX: L59.8 Other specified disorders of the skin and subcutaneous tissue related to radiation (principal); T81.31XD Disruption of external operation (surgical) wound, not elsewhere classified, subsequent encounter | CPT/HCPCS: 99183; G0277 ==

== ENCOUNTER → 2023-03-02 09:34 | Outpatient (CLI) | payer OTHER, SELFPAY | PROVIDERS: Family Provider Family Medicine; PCP Family Medicine; Referring Provider Family Medicine; Visit Provider Surgery | DX: L59.8 Other specified disorders of the skin and subcutaneous tissue related to radiation (principal); S81.002A Unspecified open wound, left knee, initial encounter; Z85.828 Personal history of other malignant neoplasm of skin | CPT/HCPCS: 11042; 99183; 99212; 99213; G0277 ==

== ENCOUNTER → 2023-03-03 08:41 | Outpatient (CLI) | payer OTHER, SELFPAY | PROVIDERS: Family Provider Family Medicine; PCP Family Medicine; Referring Provider Family Medicine; Visit Provider Surgery | DX: T81.31XD Disruption of external operation (surgical) wound, not elsewhere classified, subsequent encounter (principal); L59.8 Other specified disorders of the skin and subcutaneous tissue related to radiation | CPT/HCPCS: 99183; G0277 ==

== ENCOUNTER → 2023-03-05 08:55 | Outpatient (CLI) | payer OTHER, SELFPAY | PROVIDERS: Family Provider Family Medicine; PCP Family Medicine; Referring Provider Family Medicine; Visit Provider Physician Assistant | DX: T81.31XD Disruption of external operation (surgical) wound, not elsewhere classified, subsequent encounter (principal); L59.8 Other specified disorders of the skin and subcutaneous tissue related to radiation | CPT/HCPCS: 99183; G0277 ==

== ENCOUNTER → 2023-03-08 09:02 | Outpatient (CLI) | payer OTHER, SELFPAY | PROVIDERS: Family Provider Family Medicine; PCP Family Medicine; Referring Provider Family Medicine; Visit Provider Surgery | DX: T81.31XD Disruption of external operation (surgical) wound, not elsewhere classified, subsequent encounter (principal); L59.8 Other specified disorders of the skin and subcutaneous tissue related to radiation | CPT/HCPCS: 99183; G0277 ==

== ENCOUNTER → 2023-03-09 09:28 | Outpatient (CLI) | payer OTHER, SELFPAY | PROVIDERS: Family Provider Family Medicine; PCP Family Medicine; Referring Provider Family Medicine; Visit Provider Surgery | DX: S81.002A Unspecified open wound, left knee, initial encounter (principal); L59.8 Other specified disorders of the skin and subcutaneous tissue related to radiation; R60.0 Localized edema; L53.9 Erythematous condition, unspecified | CPT/HCPCS: 11042; 99183; G0277 ==

== ENCOUNTER → 2023-03-10 08:49 | Outpatient (CLI) | payer OTHER, SELFPAY | PROVIDERS: Family Provider Family Medicine; PCP Family Medicine; Referring Provider Family Medicine; Visit Provider Surgery | DX: L59.8 Other specified disorders of the skin and subcutaneous tissue related to radiation (principal) | CPT/HCPCS: 99183; G0277 ==

== ENCOUNTER → 2023-03-16 10:33 | Outpatient (CLI) | payer OTHER, SELFPAY | PROVIDERS: Family Provider Family Medicine; PCP Family Medicine; Referring Provider Family Medicine; Visit Provider Surgery | DX: S81.002A Unspecified open wound, left knee, initial encounter (principal); T81.89XA Other complications of procedures, not elsewhere classified, initial encounter; L59.8 Other specified disorders of the skin and subcutaneous tissue related to radiation; R60.0 Localized edema; L53.9 Erythematous condition, unspecified | CPT/HCPCS: 11042; 99183; G0277 ==

== ENCOUNTER → 2023-03-18 09:40 | Outpatient (CLI) | payer OTHER, SELFPAY | PROVIDERS: Family Provider Family Medicine; PCP Family Medicine; Referring Provider Family Medicine; Visit Provider Surgery | DX: T81.31XD Disruption of external operation (surgical) wound, not elsewhere classified, subsequent encounter (principal); L59.8 Other specified disorders of the skin and subcutaneous tissue related to radiation | CPT/HCPCS: 99183; G0277 ==

== ENCOUNTER → 2023-03-19 09:58 | Outpatient (CLI) | payer OTHER, SELFPAY | PROVIDERS: Family Provider Family Medicine; PCP Family Medicine; Referring Provider Family Medicine; Visit Provider Physician Assistant | DX: T81.31XD Disruption of external operation (surgical) wound, not elsewhere classified, subsequent encounter (principal); L59.8 Other specified disorders of the skin and subcutaneous tissue related to radiation | CPT/HCPCS: 99183; G0277 ==

== ENCOUNTER → 2023-03-22 08:50 | Outpatient (CLI) | payer OTHER, SELFPAY | PROVIDERS: Family Provider Family Medicine; PCP Family Medicine; Referring Provider Family Medicine; Visit Provider Surgery | DX: L59.8 Other specified disorders of the skin and subcutaneous tissue related to radiation (principal); S81.002A Unspecified open wound, left knee, initial encounter | CPT/HCPCS: 11042; 99183; G0277 ==

== ENCOUNTER → 2023-03-29 09:09 | Outpatient (CLI) | payer OTHER, SELFPAY | PROVIDERS: Family Provider Family Medicine; PCP Family Medicine; Referring Provider Family Medicine; Visit Provider Surgery | DX: T81.89XA Other complications of procedures, not elsewhere classified, initial encounter (principal); S81.002A Unspecified open wound, left knee, initial encounter; L59.8 Other specified disorders of the skin and subcutaneous tissue related to radiation; R60.0 Localized edema; L53.9 Erythematous condition, unspecified | CPT/HCPCS: 11042; 87070; 87075; 87077; 87147; 87186; 87205; 99213 ==

== ENCOUNTER → 2023-04-05 08:57 | Outpatient (CLI) | payer OTHER, SELFPAY | PROVIDERS: Family Provider Family Medicine; PCP Family Medicine; Referring Provider Family Medicine; Visit Provider Surgery | DX: S81.002A Unspecified open wound, left knee, initial encounter (principal); T81.89XA Other complications of procedures, not elsewhere classified, initial encounter; R60.0 Localized edema; L53.9 Erythematous condition, unspecified | CPT/HCPCS: 11042 ==

== ENCOUNTER → 2023-04-12 09:31 | Outpatient (CLI) | payer OTHER, SELFPAY | PROVIDERS: Family Provider Family Medicine; PCP Family Medicine; Referring Provider Family Medicine; Visit Provider Surgery | DX: L59.8 Other specified disorders of the skin and subcutaneous tissue related to radiation (principal); S81.002A Unspecified open wound, left knee, initial encounter; T81.89XA Other complications of procedures, not elsewhere classified, initial encounter | CPT/HCPCS: 99212; 99213 ==

== ENCOUNTER → 2023-04-26 09:45 | Outpatient (CLI) | payer OTHER, SELFPAY | PROVIDERS: Family Provider Family Medicine; PCP Family Medicine; Referring Provider Family Medicine; Visit Provider Surgery | DX: S81.002A Unspecified open wound, left knee, initial encounter (principal); T81.89XA Other complications of procedures, not elsewhere classified, initial encounter; R60.0 Localized edema | CPT/HCPCS: 11042 ==

== ENCOUNTER → 2023-05-03 09:44 | Outpatient (CLI) | payer OTHER, SELFPAY | PROVIDERS: Family Provider Family Medicine; PCP Family Medicine; Referring Provider Family Medicine; Visit Provider Surgery | DX: S81.002A Unspecified open wound, left knee, initial encounter (principal); T81.89XA Other complications of procedures, not elsewhere classified, initial encounter; R60.0 Localized edema; L59.8 Other specified disorders of the skin and subcutaneous tissue related to radiation | CPT/HCPCS: 11042; 99213 ==

== ENCOUNTER → 2023-05-18 08:44 | Outpatient (CLI) | payer OTHER, SELFPAY | PROVIDERS: Family Provider Family Medicine; PCP Family Medicine; Referring Provider Family Medicine; Visit Provider Surgery | DX: L59.8 Other specified disorders of the skin and subcutaneous tissue related to radiation (principal); S81.002A Unspecified open wound, left knee, initial encounter; T81.89XA Other complications of procedures, not elsewhere classified, initial encounter; R60.0 Localized edema | CPT/HCPCS: 11042; 87070; 87075; 87077; 87147; 87186; 87205; 99213 ==

== ENCOUNTER → 2023-05-25 10:30 | Outpatient (CLI) | payer OTHER, SELFPAY | PROVIDERS: Family Provider Family Medicine; PCP Family Medicine; Referring Provider Family Medicine; Visit Provider Surgery | DX: T81.31XD Disruption of external operation (surgical) wound, not elsewhere classified, subsequent encounter (principal); L59.8 Other specified disorders of the skin and subcutaneous tissue related to radiation | CPT/HCPCS: 11042; 99213 ==

== ENCOUNTER → 2023-06-04 12:23 | Outpatient (CLI) | payer OTHER, SELFPAY | PROVIDERS: Family Provider Family Medicine; PCP Family Medicine; Referring Provider Family Medicine; Visit Provider Physician Assistant | DX: L59.8 Other specified disorders of the skin and subcutaneous tissue related to radiation (principal); S81.002A Unspecified open wound, left knee, initial encounter; R60.0 Localized edema; C49.22 Malignant neoplasm of connective and soft tissue of left lower limb, including hip | CPT/HCPCS: 11042 ==

== ENCOUNTER → 2023-06-14 08:41 | Outpatient (CLI) | payer OTHER, SELFPAY | PROVIDERS: Family Provider Family Medicine; PCP Family Medicine; Referring Provider Family Medicine; Visit Provider Surgery | DX: L59.8 Other specified disorders of the skin and subcutaneous tissue related to radiation (principal); S81.002A Unspecified open wound, left knee, initial encounter | CPT/HCPCS: 99212; 99213 ==

== ENCOUNTER → 2024-04-12 07:14 | Outpatient (CLI) | payer OTHER, SELFPAY ==
--- NOTE | 2024-04-12 07:15 | DI.US.S_ITS ---
PROCEDURE: US PELVIC COMPLETE INDICATIONS: pelvic pain TECHNIQUE: Real-time scanning was performed of the pelvic organs, with image documentation. Additional endovaginal scanning was necessary due to incomplete visualization of the adnexal and endometrial structures by transabdominal scanning. COMPARISON: None. FINDINGS: Uterus: Uterus is retroverted and normal in size at 6.2 x 3.3 x 4.1 cm. The myometrium is homogeneous. The endometrium measures 5 mm combined thickness. Ovaries: The right ovary measures 3.2 x 2.4 x 2.3 cm, with a calculated ovarian volume of 3.6 cc. Multiple simple cysts largest measuring 1.9 cm. The left ovary measures 2.0 x 1.0 x 1.0 cm, with a calculated ovarian volume of 2.9 cc. The ovaries have a normal sonographic appearance. Less than 12 follicles can be seen in each ovary. No adnexal masses are seen. Other: No pathologic free abdominal or pelvic fluid. IMPRESSION: Unremarkable sonographic evaluation of the pelvis. We strive to produce accurate, complete, and clear reports of imaging services. To assist us in improving patient care, this report was composed using standard report templates and voice recognition software. Therefore, it may contain abnormal punctuation, insertions and/or omissions. Occasional wrong-word or sound-alike substitutions may occur. Though we review the report and make efforts to correct it, we do recommend that the report be read carefully in proper context to recognize any text inaccuracies. Dictated by: Arturo Hinkle M.D. on 04/12/2024 at 10:53 Approved by: Arturo Hinkle M.D. on 04/12/2024 at 10:54
== END ==
PROVIDERS: Family Provider Family Medicine; PCP Family Medicine; Referring Provider Obstetrics & Gynecology; Visit Provider Obstetrics & Gynecology
DX: N83.291 Other ovarian cyst, right side (principal); R10.2 Pelvic and perineal pain
CPT/HCPCS: 76856